=== PATIENT | male | born 1985 | race African-American/Black ===

== ENCOUNTER 2020-12-14 15:25 | Emergency (ER) | payer MEDICARE, MEDICAID, SELFPAY ==
--- NOTE | ~2020-12-14 | US_ITS ---
US venous doppler UE LT 12/14/2020 16:11 Indication: Left arm fistula with pain. Procedure: High-resolution Doppler examination of left upper extremity graft Comparison: No prior studies for comparison. Findings: Examination limited due to patient pain and overlying sutures. The proximal aspect of the g raft appears patent. There is a hypoechoic mass surrounding the proximal aspect of the graft, likely postsurgical hematoma. No deep venous thrombosis identified. There is normal color flow in the visual ized aspects of the graft. Impression: 1: No definite thrombosis of the left upper extremity graft or deep veins. Examination limited due to patient pain and overlying sutures. 2: Hypoechoic structure surrounding the proximal aspect of the graft likely represents a hematoma. Reviewed, dictated and finalized at location A. Impression: 1: No definite thrombosis of the left upper extremity graft or deep veins. Exam ination limited due to patient pain and overlying sutures. 2: Hypoechoic structure surrounding the proximal aspect of the graft likely re presents a hematoma.
--- NOTE | ~2020-12-14 | XR_ITS ---
EXAMINATION: XR chest 1V DATE: 12/14/2020 16:12 INDICATION: Shortness of breath. TECHNIQUE: A single frontal view of the chest was obtained. COMPARISON: Chest single view 04/28/2018 FINDINGS: There are small pleural effusions. There are airspace opacities at the lung bases. No pneum othorax. Cardiomegaly is noted. There is a vascular stent in left axilla. There is an implanted defib rillator overlying the mediastinum. IMPRESSION: 1. Airspace opacities at the lung bases, consistent with atelectasis versus pneumonia. 2. Small pleural effusions. 3. Cardiomegaly. Reviewed, dictated and finalized at location B. IMPRESSION: 1. Airspace opacities at the lung bases, consistent with atelectasis versus pne umonia. 2. Small pleural effusions. 3. Cardiomegaly.
[2020-12-14 15:26] VITALS: BP 183/120; PULSE 85; RESP 18; O2SAT 100
--- NOTE | 2020-12-14 15:27 | ED.UPPEXIN ---
HPI - Extremity Injury (Upper) General Chief Complaint: Extremity Injury, Upper Stated Complaint: left arm pain Time Seen by Provider: 12/14/20 15:27 Source: patient and EMS Mode of arrival: EMS Limitations: no limitations History of Present Illness HPI narrative: Patient is a 35-year-old male with a history of hypertension, cardiomyopathy EF 25%, end-stage renal disease on Sunday, , Sunday dialysis, and HIV who presents for evaluation of left arm pain. Patient states he had his fistula graft surgery/revision yesterday at [facility]. He did not attend dialysis today due to pain in his arm. He reports mild dyspnea. He denies chest pain. He denies fever or cough. Pt follows with Dr. Whitlock and Dr. Szymanski at [facility]. Pain in his arm is dull, aching in nature. No numbness. Movement exacerbates pain. Related Data Home Medications Medication Instructions Recorded Confirmed amlodipine 5 mg PO DAILY 12/14/20 carvedilol 25 mg PO Q12H 12/14/20 itrcevz-fov-tubdi-tenof alafen 1 tablet PO DAILY 12/14/20 [Genvoya] ivabradine 7.5 mg PO BID 12/14/20 sacubitril-valsartan [Entresto] 1 tablet PO BID 12/14/20 Allergies Allergy/AdvReac Type Severity Reaction Status Date / Time tramadol AdvReac Hives Verified 12/14/20 16:18 Review of Systems Review of Systems: Narrative: CONSTITUTIONAL: Denies fever, chills, or sweats. EYES: Denies visual changes, redness, or discharge. ENT: Denies rhinorrhea, congestion, sore throat, or otalgia. CARDIOVASCULAR: Denies chest pain, palpitations, or edema. RESPIRATORY: Denies cough, reports mild dyspnea GASTROINTESTINAL: Denies abdominal pain, nausea, vomiting, or diarrhea. GENITOURINARY: Denies dysuria or hematuria. SKIN: Denies rash or itching. MUSCULOSKELETAL: Denies back pain, joint pain,reports left arm pain NEUROLOGIC: Denies headache, numbness, or weakness. [facility]LY [facility] Social History Social History (Updated 12/14/20 @ 15:43 by Debby Woodruff MD) Alcohol intake: current Alcohol use details: Socially Substance use: never Living arrangements: with family Gender identity (if verbalized by the patient): Male Exam Narrative: Exam Narrative: GENERAL: Awake, alert, conversant HEAD: Normocephalic, atraumatic. EYES: PERRLA and EOMI. ENT: Nares clear, no rhinorrhea or epistaxis. Mucous membranes moist. NECK: Supple. CHEST: No respiratory distress, breathing even and non labored, crackles bilaterally HEART: Regular rate, sinus rhythm ABDOMEN:Non distended, non tender EXTREMITIES: Decreased active range of motion in the left upper extremity due to pain. Fistula in the left upper extremity with 3 incision sites that are clean, dry and intact. Tender to palpation. No erythema. Mild edema. Mild ecchymoses. No active bleeding. Bruit audible over the fistula site. Intact sensation over the deltoid. Intact sensation median, ulnar, radial nerve distribution. SKIN: Warm, dry, no rash. NEURO:No focal deficits. Alert and oriented x3 Course Vital Signs Vital signs: Vital Signs Pulse Rate 85 12/14/20 15:26 Respiratory Rate 18 12/14/20 15:26 Blood Pressure 183/120 H 12/14/20 15:26 Pulse Oximetry 100 12/14/20 15:26 Pulse Rate 75 12/14/20 18:25 Respiratory Rate 18 12/14/20 18:25 Blood Pressure 171/119 H 12/14/20 17:51 Pulse Oximetry 99 12/14/20 17:51 MDM - Extremity Injury (Upper) MDM Narrative Medical decision making narrative: Patient presented for evaluation of low arm pain at the site of his recent fistula grafting site. Patient was surgery yesterday at [facility] by Dr. Whitlock. At the time of assessment, ABCs are intact patient's vital signs are notable for hypertension. The extremity is warm and well-perfused there is edema and postsurgical changes, incision sites are clean, dry and intact. Patient has extreme tenderness on exam, no crepitus. Adequate capillary refill in the digits. There is difficulty obtaining I
--- NOTE | 2020-12-14 15:56 | ECG_ITS ---
Measurements Intervals [place] Rate: 88 P: 58 RI: 168 QRS: -35 QRSD: 121 T: 71 QT: 400 QTc: 486 Interpretive Statements SINUS RHYTHM LEFT ATRIAL ENLARGEMENT LEFT AXIS DEVIATION INTRAVENTRICULAR CONDUCTION DELAY DELAYED PRECORDIAL R/S TRANSITION PEAKED T WAVES- CONSIDER HYPERKALEMIA OR ISCHEMIA BASELINE ARTIFACT- I, II, III, AVR, AVF, V2-V6 ABNORMAL ECG Electronically Signed On 12-14-2020 16:08:49 CDT by Gianni Churchill D.O.
--- NOTE | 2020-12-14 16:29 | PC.NURSE ---
Attempting to draw blood at this time, patient pulling arm away and stating that we will never get blood from certain sites. Second RN at bedside at this time attempting to obtain blood.
[2020-12-14 16:52] LABS: Basophils Percent Auto 0.5 % (0.2-1.2); Eosinophils Percent Auto 0.5 % (0-4.4); Hematocrit 29.8 % (42.0-52.0); Hemoglobin 9.6 g/dL (14.0-18.0); Immature Granulocyte Absolute 0.03 K/mm3 (0.00-0.031); Immature Granulocyte Percent A 0.4 % (0-0.5); Lymphocytes Absolute Auto 1.23 K/mm3 (0.9-3.2); Lymphocytes Percent Auto 15.3 % (18.3-44.2); Mean Corpuscular HGB Conc 32.2 g/dl (32-36); Mean Corpuscular Hemoglobin 34.3 pg (26-34); Mean Corpuscular Volume 106.4 fl (80-100); Mean Platelet Volume 12.6 fl (7.4-10.4); Monocytes Absolute Auto 0.6 K/mm3 (0.1-0.6); Neutrophils Percent Auto 75.3 % (45.5-73.1); Platelet Count Result 152 k/mm3 (150-375); Red Cell Distribution Width 16.1 % (11.5-14.5)
[2020-12-14 17:44] LABS: Alanine Aminotransferase 11 U/L (4-50); Albumin Level 4.5 g/dL (3.5-5.1); Alkaline Phosphatase 123 U/L (38-126); Anion Gap 19 mmol/L (8-16); Aspartate Amino Transferase 28 U/L (17-59); Bilirubin,Total 0.7 mg/dL (0.2-1.3); Blood Urea Nitrogen 101 mg/dL (9-20); Calcium 9.3 mg/dL (8.4-10.2); Carbon Dioxide 19 mmol/L (22-30); Chloride 102 mmol/L (98-107); Estimated CRCL calculation 4 ml/min; Estimated Glomerular Filt Rate 3; Glucose 83 mg/dL (75-110); Potassium 7.8 mmol/L (3.4-5.0); Sodium 140 mmol/L (137-145)
[2020-12-14 17:51] VITALS: BP 171/119; PULSE 81; RESP 17; O2SAT 99
[2020-12-14 18:25] VITALS: PULSE 75; RESP 18
[2020-12-14] MEDS: ALBUTEROL SULFATE NEB 2.5 MG/0.5 ML INH 10 MG INHALATION (18:25)
[2020-12-14] MEDS: DEXTROSE 50% 25 GM/50 ML SYRINGE IV PUSH (18:32)
[2020-12-14] MEDS: CALCIUM GLUCONATE 1,000 MG/10 ML VIAL 2000 MG IV PUSH (18:33)
[2020-12-14] MEDS: INSULIN HUMAN REGULAR (*BKC) 100 UNITS/ML 10 UNITS IV PUSH (18:34)
[2020-12-14] MEDS: oxyCODONE/ACETAMINOPHEN (*CRX) 5-325 MG TABLET 1 TABLET PO (19:15)
[2020-12-14 20:19] VITALS: BP 165/114; PULSE 84; RESP 16; O2SAT 100
--- NOTE | 2020-12-14 20:32 | PC.NURSE ---
glynn has arrived
== END 2020-12-14 20:35 | disposition short-term general hospital (02) ==
PROVIDERS: Emergency Provider Emergency Medicine; PCP Family Medicine
DX: E87.5 Hyperkalemia (principal); T82.9XXA Unspecified complication of cardiac and vascular prosthetic device, implant and graft, initial encounter; R94.31 Abnormal electrocardiogram [ECG] [EKG]; I12.0 Hypertensive chronic kidney disease with stage 5 chronic kidney disease or end stage renal disease; N18.6 End stage renal disease; Z99.2 Dependence on renal dialysis; Z21 Asymptomatic human immunodeficiency virus [HIV] infection status
CPT/HCPCS: 36415; 71045; 80053; 85025; 93005; 93971; 94640; 96374; 96375; 99285; A9270; J0610; J1815